=== PATIENT | male | born 1970 | race Caucasian/White ===

== ENCOUNTER 2017-08-06 20:58 | Emergency (ER) | payer MEDICAID ==
[~2017-08-06] VITALS: Ht 175.3 cm; Wt 71.5 kg
[~2017-08-06 20:58] MED LIST: DENIES MEDS
[2017-08-06 21:01] VITALS: Ht 175.3 cm; Wt 71.5 kg
[2017-08-06] MEDS ORDERED: NITROGLYCERIN 2% 1 GM OINT PKT TD STA (21:25)
[2017-08-06] MEDS ORDERED: ASPIRIN 325 MG TAB PO STA (21:25)
[2017-08-06] MEDS ORDERED: HYDROCODONE/APAP (10/325) TAB PO ONE (21:30)
[2017-08-06] MEDS ORDERED: LORAZEPAM 1 MG TAB PO ONE (21:30)
--- NOTE | 2017-08-06 21:42 | RADRPT ---
PROCEDURE: XR Chest. CLINICAL INDICATION: Chest pain. TECHNIQUE: Single frontal view. COMPARISON: None. FINDINGS: The lungs are clear. The heart size is normal. There is no pleural effusion. There is no pneumothorax. IMPRESSION: 1. Normal chest radiograph. RPTAT: QQ .Fritz Huynh MD, Date Time Electronically viewed and signed by .Fritz Huynh MD, on 08/06/2017 21:42 .R/
[2017-08-06 22:10] LABS: BASOPHILS % 0.4 % (0.0-2.0); EOSINOPHILS # 0.6 10^3/ul (0.0-0.5); EOSINOPHILS % 6.1 % (0.0-7.0); HEMATOCRIT 41.5 % (42.0-52.0); HEMOGLOBIN 14.3 g/dl (14.0-18.0); LYMPHOCYTES # 2.9 10^3/ul (0.8-2.9); MEAN CORPUSCULAR HEMOGLOBIN 30.6 pg (29.0-33.0); MEAN CORPUSCULAR HGB CONC 34.5 g/dl (32.0-37.0); MEAN CORPUSCULAR VOLUME 88.7 fl (82.0-101.0); MEAN PLATELET VOLUME 10.8 fl (7.4-10.4); MONOCYTE # 0.6 10^3/ul (0.3-0.9); MONOCYTES % 6.1 % (0.0-11.0); NEUTROPHIL # 5.3 10^3/ul (1.6-7.5); NEUTROPHILS % 56.1 % (39.0-77.0); PLATELET COUNT 235 10^3/UL (140-415); RED BLOOD COUNT 4.68 10^6/ul (4.70-6.10); RED CELL DISTRIBUTION WIDTH 12.7 % (11.5-14.5); WHITE BLOOD COUNT 9.4 10^3/ul (4.8-10.8)
--- NOTE | 2017-08-06 22:16 | ERD ---
ER Documentation Chief Complaint Chief Complaint WORSEND CP TODAY RADIATING TO LFT ARM, HX PR 2009 STILL SMOKES CIGS HPI This is a 47-year-old male with prior history of acute PR he states treated by angioplasty in 2012 who presents to the emergency room with chest pain. He states that he has been smoking more frequently. He describes chest pain that is pressure-like rate into the left arm. He states occasionally exertional. He describes approximately 5 out of 10 pain currently. He is asking for IV Dilaudid. ROS All systems reviewed and are negative except as per history of present illness. Medications Home Meds Discontinued Reported Medications [Denies Meds] No Conflict Check 02/03/11 Allergies Allergies: Coded Allergies: ibuprofen (Unverified Allergy, Unknown, 08/06/17) morphine (Unverified Allergy, Unknown, 08/06/17) PMhx/Soc Medical and Surgical Hx: pt denies Medical Hx, pt denies Surgical Hx History of Surgery: No Anesthesia Reaction: No Hx Neurological Disorder: No Hx Respiratory Disorders: No Hx Cardiac Disorders: No Hx Psychiatric Problems: No Hx Miscellaneous Medical Probl: No Hx Alcohol Use: No Hx Substance Use: No Hx Tobacco Use: Yes (HALF PACK DAILY) Smoking Status: Current every day smoker FmHx Family History: No diabetes Physical Exam Vitals Vital Signs Date Time Temp Pulse Resp B/P Pulse Ox O2 Delivery O2 Flow Rate FiO2 08/06/17 21:01 98.6 105 20 147/100 99 Physical Exam General: Well developed, well nourished, no acute distress Head: Normocephalic, atraumatic. Eyes: Pupils equally reactive, EOM intact ENT: Moist mucous membranes Neck: Supple, no lymphadenopathy Respiratory: Lungs clear bilaterally, no distress Cardiovascular: RRR, no murmurs, rubs, or gallops Abdominal: Soft, non-tender, non-distended, no peritoneal signs : Deferred MSK: No edema, no unilateral swelling, 5/5 strength Neurologic: Alert and oriented, moving all extremities, normal speech, no focal weakness, no cerebellar signs Skin: No rash Psych: Normal mood Results 24 hrs Laboratory Tests Test 08/06/17 21:28 White Blood Count Pending Red Blood Count Pending Hemoglobin Pending Hematocrit Pending Mean Corpuscular Volume Pending Mean Corpuscular Hemoglobin Pending Mean Corpuscular Hemoglobin Concent Pending Red Cell Distribution Width Pending Platelet Count Pending Mean Platelet Volume Pending Current Medications Medications (Trade) Dose Ordered Sig/Michi Route PRN Reason Start Time Stop Time Status Last Admin Dose Admin Aspirin (Aspirin) 325 mg ONCE STAT PO 08/06/17 21:25 08/06/17 21:27 DC 08/06/17 21:34 Nitroglycerin (Nitroglycerin 2% Oint) 1 inch ONCE STAT TD 08/06/17 21:25 08/06/17 21:27 DC 08/06/17 21:34 Acetaminophen/ Hydrocodone Bitart (Salters (10/325)) 1 tab ONCE ONCE PO 08/06/17 21:30 08/06/17 21:31 DC 08/06/17 21:34 Lorazepam (Ativan) 1 mg ONCE ONCE PO 08/06/17 21:30 08/06/17 21:31 DC 08/06/17 21:34 Procedures/MDM EKG, MONITORS, & DIAGNOSTIC IMAGING: EKG: I reviewed and interpreted a 12-lead EKG. Rhythm: Normal sinus rhythm Ectopy: None Intervals: No abnormalities ST segments: No elevations or depressions T waves: No contiguous inversions Repeat EKG: EKG: I reviewed and interpreted a 12-lead EKG. Rhythm: Normal sinus rhythm Ectopy: None Intervals: No abnormalities ST segments: No elevations or depressions T waves: No contiguous inversions Chest x-ray: I reviewed and interpreted a 1 view of the chest Mediastinum: No enlargement Cardiac silhouette: No cardiomegaly Airspace: Clear lung puri bilaterally without evidence of pneumothorax Bones: No evidence of fracture LAB INTERPRETATION: [] MEDICAL DECISION MAKING: The patient's history, physical exam and clinical presentation is concerning for possible cardiogenic etiology and acute coronary syndrome. The patient has multiple risk factors and a description of prior PR. However, the patient is additionally exhibiting signs and symptoms consistent with drug-seeking behavior. He immediately is asking for IV Dilaudid. I argued with the patient and stated that he did not require IV narcotics. I will provide the patient with Salters for his chronic pain. He states allergy to morphine. While the patient is having chest pain there is some concern that this is malingering and possibly drug-seeking behavior. Regardless, I will give the patient the benefit of the doubt given he is a smoking history with prior description of myocardial infarction. Our electronic medical record does not show a diagnosis of acute PR that he does not have a visit around 2012 when he states that he was diagnosed with this. Consider this was done at outside hospital. Based on the patient's clinical exam and history and risk factors, I have a much lower clinical concern for pulmonary embolism, acute aortic dissection, pneumothorax, pneumonia, cardiac tamponade HEART Score: 4 MACE Rate: Upwards of 16.6% Shared Decision Making: We had a conversation regarding risk stratification, MACE rate, and the risks, benefits, alternatives of disposition planning options. Disposition planning: Recommend inpatient hospitalization for serial enzymes ER COURSE: Aspirin, nitroglycerin provided. Salters provided, Ativan provided per patient request. I kept the patient and/or family informed of laboratory and diagnostic imaging results throughout the emergency room course. DISPOSITION PLAN: Telemetry admission for management of chest pain to rule out acute coronary syndrome, serial enzymes, risk stratification and consideration of provocative testing CONSULTATION: Accepting care team and consultations: I discussed the current laboratory data, diagnostic imaging and emergency care provided. Admitting team: Dr. Meredith Admitting team indication: Insurance directed Departure Diagnosis: Primary Impression: Chest pain Chest pain type: unspecified Qualified Code: R07.9 - Chest pain, unspecified type Additional Impression: Drug-seeking behavior Condition: Stable MARBELLA LEE MD Aug 06, 2017 22:16
[2017-08-06 22:34] LABS: ANION GAP 16 (8-16); BLOOD UREA NITROGEN 17 mg/dl (7-20); CALCIUM 9.5 mg/dl (8.4-10.2); CARBON DIOXIDE 25 mmol/L (21-31); CHLORIDE 107 mmol/L (97-110); GLUCOSE 119 mg/dl (70-220); POTASSIUM 3.8 mmol/L (3.5-5.1); SODIUM 144 mmol/L (135-144)
[2017-08-06 22:46] LABS: TROPONIN-I < 0.012 ng/ml (0.00-0.12)
[2017-08-06] MEDS ORDERED: ACETAMINOPHEN 325 MG TAB PO PRN (23:00)
[2017-08-06] MEDS ORDERED: ONDANSETRON 4 MG INJ IV PRN (23:00)
[2017-08-07] MEDS ORDERED: HYDROCODONE/APAP (5/325) TAB PO PRN
[2017-08-07] MEDS ORDERED: ONDANSETRON 4 MG INJ IV PRN
[2017-08-07] MEDS ORDERED: ACETAMINOPHEN 325 MG TAB PO PRN
[2017-08-07] MEDS ORDERED: NITROGLYCERIN (SL) 0.4 MG TAB SL PRN
[2017-08-07] MEDS ORDERED: ALBUTEROL/IPRATROPIUM (NEB) 3 ML AMP HHN PRN
[2017-08-07] MEDS ORDERED: NACL 0.9% 3 ML SYG IV SCH
[2017-08-07 05:05] VITALS: TEMP 97.9
[2017-08-07 08:45] VITALS: BP 101/78; PULSE 69; RESP 18
[2017-08-07] MEDS ORDERED: ENOXAPARIN 40 MG/0.4 ML SYG SC SCH (09:00)
[2017-08-07] MEDS ORDERED: ASPIRIN 81 MG TAB PO SCH (09:00)
--- NOTE | 2017-08-07 09:16 | EN ---
Date/Time of Note Date/Time of Note DATE: 08/07/17 TIME: 09:15 Patient now refusing admission. Extensive counseling provided. Patient understands that a potential serious etiology including but not limited to acute coronary syndrome/myocardial infarction has not been ruled out and has verbalized understanding of the consequences including but not limited to sudden and permanent disability. Despite this he is insistent on signing out AGAINST MEDICAL ADVICE. Patient understands that he is welcome and indeed encouraged to return to the ED at any time should he change his mind or experience any other symptoms. LUCERO MONTES DE OCA MD Aug 07, 2017 09:16
--- NOTE | 2017-08-07 10:26 | HP ---
Date/Time of Note Date/Time of Note DATE: 08/07/17 TIME: 10:22 Assessment/Plan Lines/Catheters IV Catheter Type (from Nrs): Saline Lock Assessment/Plan Assessment/Plan ASSESSMENT 47-year-old male was reported history of CAD with stent in 2012 here was chest pain, need to rule out ACS. First troponin negative and the EKG was no ST-T wave abnormalities. PLAN Admit to telemetry unit Supplemental oxygen, aspirin, statin with as needed nitro morphine. Beta- niko if blood pressure allows 2D echo Cardiology consult as needed HPI/ROS Admit Date/Time Admit Date/Time Hx of Present Illness This is a 47-year-old male with reported history of CAD with stent in 2012, smoking history who presented to the ER complaining of chest pain. He said he has been having chest pain off and on but worsens for the past day or two. Pain is slightly left-sided, pressure-like with radiation to his left arm. Reported occasional shortness of breath. Denied nausea/vomiting or diaphoresis. In ER, first troponin negative and EKG was no ST-T wave abnormalities. Patient reported morphine allergy and has been asking for Dilaudid while in the ER. PMH/Family/Social Social History Smoking Status: Current every day smoker Exam/Review of Systems Vital Signs Vitals Vital Signs Date Time Temp Pulse Resp B/P Pulse Ox O2 Delivery O2 Flow Rate FiO2 08/07/17 05:05 97.9 72 18 104/69 97 Room Air 08/06/17 23:15 2 Labs Result Diagram: 08/06/17212708/06/172127 Medications Medications Current Medications Ondansetron HCl (Zofran Inj) 4 mg Q6H PRN IV NAUSEA AND/OR VOMITING; Start 08/07/17 at 00:00 Aspirin (Aspirin) 81 mg DAILY PO ; Start 08/07/17 at 09:00 Nitroglycerin (Nitroglycerin (Sl Tab) 0.4 Mg) 1 tab Q5M PRN SL CHEST PAIN; Start 08/07/17 at 00:00 Acetaminophen (Tylenol Tab) 650 mg Q6H PRN PO PAIN LEVEL 1-3 OR FEVER; Start 08/07/17 at 00:00 Enoxaparin Sodium (Lovenox) 40 mg DAILY SC ; Start 08/07/17 at 09:00 Atorvastatin Calcium (Lipitor) 40 mg QHS PO ; Start 08/07/17 at 21:00 Acetaminophen/ Hydrocodone Bitart ([place] (5/)) 1 tab Q4H PRN PO pain Last administered on 08/07/17 04:04; Admin Dose 1 TAB; Start 08/07/17 at 00:00 NEGRITA REA MD Aug 07, 2017 10:26
[2017-08-07] MEDS ORDERED: ATORVASTATIN 40 MG TAB PO SCH (21:00)
== END 2017-08-07 09:35 | disposition left against medical advice (07) ==
LOC: E/R 20:58
DX: R07.9 Chest pain, unspecified (principal); F17.210 Nicotine dependence, cigarettes, uncomplicated; Z76.5 Malingerer [conscious simulation]
CPT/HCPCS: 36415; 71010; 80048; 84484; 85025; 93005; 96374; J2405; Z7502; Z7610; J1650

== ENCOUNTER 2017-08-08 15:02 | Emergency (ER) | payer MEDICAID ==
[~2017-08-08] VITALS: Wt 70.0 kg
== END 2017-08-08 17:28 | disposition left against medical advice (07) ==
LOC: E/R 15:02
DX: Z53.21 Procedure and treatment not carried out due to patient leaving prior to being seen by health care provider (principal)

== ENCOUNTER 2017-08-08 18:12 | Emergency (ER) | payer MEDICAID ==
[~2017-08-08] VITALS: Wt 71.0 kg
[2017-08-08 20:54] LABS: BASOPHILS % 0.3 % (0.0-2.0); EOSINOPHILS # 0.4 10^3/ul (0.0-0.5); HEMATOCRIT 42.5 % (42.0-52.0); HEMOGLOBIN 14.8 g/dl (14.0-18.0); LYMPHOCYTES # 2.8 10^3/ul (0.8-2.9); LYMPHOCYTES % 32.1 % (15.0-51.0); MEAN CORPUSCULAR HEMOGLOBIN 30.5 pg (29.0-33.0); MEAN CORPUSCULAR HGB CONC 34.8 g/dl (32.0-37.0); MEAN CORPUSCULAR VOLUME 87.6 fl (82.0-101.0); MEAN PLATELET VOLUME 10.5 fl (7.4-10.4); MONOCYTE # 0.7 10^3/ul (0.3-0.9); MONOCYTES % 8.5 % (0.0-11.0); NEUTROPHIL # 4.8 10^3/ul (1.6-7.5); PLATELET COUNT 255 10^3/UL (140-415); RED BLOOD COUNT 4.85 10^6/ul (4.70-6.10); RED CELL DISTRIBUTION WIDTH 12.6 % (11.5-14.5); WHITE BLOOD COUNT 8.7 10^3/ul (4.8-10.8)
[2017-08-08] MEDS ORDERED: HYDROmorphONE 0.5 MG/0.5 ML SYG IV STA ×2 (21:14→22:02)
--- NOTE | 2017-08-08 21:17 | RADRPT ---
PROCEDURE: XR Chest. CLINICAL INDICATION: Chest pain TECHNIQUE: Single frontal view of the chest was obtained COMPARISON: 08/06/2017 FINDINGS: The heart and mediastinum are within normal limits. The lungs are clear. ECG leads projected over the chest. There is no pleural effusion or pneumothorax. IMPRESSION: No acute disease. RPTAT: HJES .Satnam Schwartz MD, MD Date Time Electronically viewed and signed by .Satnam Schwartz MD, MD on 08/08/2017 21:17 .S/
[2017-08-08 21:26] LABS: ANION GAP 14 (8-16); BLOOD UREA NITROGEN 12 mg/dl (7-20); CALCIUM 9.7 mg/dl (8.4-10.2); CARBON DIOXIDE 29 mmol/L (21-31); CHLORIDE 108 mmol/L (97-110); CREATININE 0.79 mg/dl (0.61-1.24); GLUCOSE 94 mg/dl (70-220); POTASSIUM 3.7 mmol/L (3.5-5.1); SODIUM 147 mmol/L (135-144)
[2017-08-08] MEDS ORDERED: ASPIRIN 81 MG TAB PO ONE (21:30)
[2017-08-08 21:38] LABS: TROPONIN-I < 0.012 ng/ml (0.00-0.12)
[2017-08-08] MEDS ORDERED: LORAZEPAM 2 MG INJ IV ONE (22:00)
[2017-08-08] MEDS ORDERED: HYDROmorphONE 1 MG/ML SYG IV STA (22:50)
[2017-08-08] MEDS ORDERED: ACETAMINOPHEN 325 MG TAB PO PRN (23:00)
[2017-08-08] MEDS ORDERED: ONDANSETRON 4 MG INJ IV PRN (23:00)
--- NOTE | 2017-08-08 23:23 | ERD ---
ER Documentation Chief Complaint Chief Complaint pt. signed up and left twice today. third registration w cc cp HPI 47-year-old male with a history of hypertension and CAD status post [place] in 2008 presenting to the ER with left-sided chest pain. This patient was here yesterday as well with the same complaints. He was going to be admitted, but signed out AMA from the ER. He decided to come back to the ED as this chest pain was not resolving. He complains of pressure-like left-sided chest pain, constant, radiating to his left arm and left neck. No associated shortness of breath, diaphoresis, nausea, vomiting. The patient is asking for Dilaudid only and Ativan IV, stating he is allergic to morphine. ROS All systems reviewed and are negative except as per history of present illness. Medications Home Meds Discontinued Reported Medications [Denies Meds] No Conflict Check 02/03/11 Allergies Allergies: Coded Allergies: ibuprofen (Unverified Allergy, Unknown, 08/08/17) morphine (Unverified Allergy, Unknown, 08/08/17) PMhx/Soc Medical and Surgical Hx: pt denies Surgical Hx History of Surgery: No Anesthesia Reaction: No Hx Neurological Disorder: No Hx Respiratory Disorders: No Hx Cardiac Disorders: Yes (HLD, [place] 2008) Hx Psychiatric Problems: No Hx Miscellaneous Medical Probl: Yes (HLD) Hx Alcohol Use: No Hx Substance Use: No Hx Tobacco Use: Yes (HALF PACK DAILY) Smoking Status: Current every day smoker FmHx Family History: coronary disease Physical Exam Vitals Vital Signs Date Time Temp Pulse Resp B/P Pulse Ox O2 Delivery O2 Flow Rate FiO2 08/08/17 20:35 85 18 132/99 99 Room Air 08/08/17 18:15 98.0 88 20 134/83 99 Physical Exam Const: No apparent distress, nontoxic, no diaphoresis Head: Atraumatic Eyes: Normal Conjunctiva ENT: Normal External Ears, Nose and Mouth. Neck: Full range of motion..~ No meningismus. No JVD Resp: Clear to auscultation bilaterally Cardio: Regular rate and rhythm, no murmurs. 2+ distal pulses in all 4 extremities Abd: Soft, non tender, non distended. Normal bowel sounds Skin: No petechiae or rashes Back: No midline or flank tenderness Ext: No cyanosis, or edema. no calf tenderness Neur: Awake and alert Psych: Normal Mood and Affect Result Diagram: 08/08/17202908/08/17 2030 Results 24 hrs Laboratory Tests Test 08/08/17 20:30 White Blood Count 8.710^3/ul Red Blood Count 4.8510^6/ul Hemoglobin 14.8g/dl Hematocrit 42.5% Mean Corpuscular Volume 87.6fl Mean Corpuscular Hemoglobin 30.5pg Mean Corpuscular Hemoglobin Concent 34.8g/dl Red Cell Distribution Width 12.6% Platelet Count 37316^3/UL Mean Platelet Volume 10.5fl Neutrophils % 55.0% Lymphocytes % 32.1% Monocytes % 8.5% Eosinophils % 4.0% Basophils % 0.3% Nucleated Red Blood Cells % 0.0/100WBC Neutrophils # 4.810^3/ul Lymphocytes # 2.810^3/ul Monocytes # 0.710^3/ul Eosinophils # 0.410^3/ul Basophils # 0.010^3/ul Nucleated Red Blood Cells # 0.010^3/ul Sodium Level 147mmol/L Potassium Level 3.7mmol/L Chloride Level 108mmol/L Carbon Dioxide Level 29mmol/L Anion Gap 14 Blood Urea Nitrogen 12mg/dl Creatinine 0.79mg/dl Glucose Level 94mg/dl Calcium Level 9.7mg/dl Troponin I < 0.012ng/ml Current Medications Medications (Trade) Dose Ordered Sig/Michi Route PRN Reason Start Time Stop Time Status Last Admin Dose Admin Aspirin (Aspirin) 162 mg ONCE ONCE PO 08/08/17 21:30 08/08/17 21:31 DC 08/08/17 22:00 Hydromorphone HCl (Dilaudid) 0.5 mg ONCE STAT IV 08/08/17 21:14 08/08/17 21:47 DC Lorazepam (Ativan) 1 mg ONCE ONCE IV 08/08/17 22:00 08/08/17 22:01 DC Hydromorphone HCl (Dilaudid) 0.5 mg ONCE STAT IV 08/08/17 22:02 08/08/17 22:03 DC 08/08/17 22:15 Ondansetron HCl (Zofran Inj) 4 mg ER BRIDGE PRN IV NAUSEA AND/OR VOMITING 08/08/17 23:00 08/09/17 22:59 Acetaminophen (Tylenol Tab) 650 mg ER BRIDGE PRN PO MILD PAIN/FEVER 08/08/17 23:00 08/09/17 22:59 Hydromorphone HCl (Dilaudid) 1 mg ONCE STAT IV 08/08/17 22:50 08/08/17 22:51 DC Procedures/MDM EKG: Rate/Rhythm: Normal sinus rhythm QRS, ST, T-waves: Left axis deviation, No changes consistent w/ acute ischemia Impression: No evidence of ischemia or arrhythmia Chest x-ray shows no acute abnormalities Labs reviewed by me: CBC unremarkable BMP with mild hypernatremia, otherwise unremarkable Troponin within normal limits MDM Patient's symptoms are concerning for cardiac cause will require inpatient workup and continuous monitoring. I doubt pulmonary embolism or dissection at this time. Aspirin was given. Dilaudid IV was given as well. Given the patient is high risk for chest pain due to ACS, he will be admitted for further workup. Further w/u for ischemia, arrhythmia, PE or dissection will be deferred to the inpatient team. Accepting Care Team: Current data and ongoing care discussed. Time: Time of admission Primary Provider: Masoud Outstanding Data: none Departure Diagnosis: Primary Impression: Chest pain Chest pain type: unspecified Qualified Code: R07.9 - Chest pain, unspecified type Condition: Fair GREG TINAJERO MD Aug 08, 2017 23:23
[2017-08-09] MEDS ORDERED: HYDROCODONE/APAP (5/325) TAB PO PRN ×2 (02:00→05:30)
[2017-08-09 04:14] LABS: CREATINE KINASE 87 IU/L (23-200)
[2017-08-09 04:42] LABS: CK-MB 0.37 ng/ml (0.0-2.4); TROPONIN-I < 0.012 ng/ml (0.00-0.12)
[2017-08-09] MEDS ORDERED: NACL 0.9% 3 ML SYG IV SCH (05:30)
[2017-08-09] MEDS ORDERED: ALBUTEROL/IPRATROPIUM (NEB) 3 ML AMP HHN PRN (05:30)
[2017-08-09] MEDS ORDERED: NITROGLYCERIN (SL) 0.4 MG TAB SL PRN (05:30)
[2017-08-09] MEDS ORDERED: ONDANSETRON 4 MG INJ IV PRN (05:30)
[2017-08-09] MEDS ORDERED: ACETAMINOPHEN 325 MG TAB PO PRN (05:30)
[2017-08-09 08:28] LABS: BASOPHILS % 0.4 % (0.0-2.0); EOSINOPHILS # 0.4 10^3/ul (0.0-0.5); EOSINOPHILS % 5.7 % (0.0-7.0); HEMATOCRIT 40.8 % (42.0-52.0); HEMOGLOBIN 13.9 g/dl (14.0-18.0); LYMPHOCYTES # 3.1 10^3/ul (0.8-2.9); LYMPHOCYTES % 41.6 % (15.0-51.0); MEAN CORPUSCULAR HEMOGLOBIN 30.3 pg (29.0-33.0); MEAN CORPUSCULAR HGB CONC 34.1 g/dl (32.0-37.0); MEAN CORPUSCULAR VOLUME 89.1 fl (82.0-101.0); MEAN PLATELET VOLUME 10.4 fl (7.4-10.4); MONOCYTE # 0.7 10^3/ul (0.3-0.9); NEUTROPHIL # 3.2 10^3/ul (1.6-7.5); NEUTROPHILS % 43.2 % (39.0-77.0); PLATELET COUNT 226 10^3/UL (140-415); RED BLOOD COUNT 4.58 10^6/ul (4.70-6.10); RED CELL DISTRIBUTION WIDTH 12.5 % (11.5-14.5); WHITE BLOOD COUNT 7.4 10^3/ul (4.8-10.8)
[2017-08-09 08:39] LABS: ALBUMIN 3.5 g/dl (3.3-4.9); ALBUMIN/GLOBULIN RATIO 1.2; BILIRUBIN,INDIRECT 0.2 mg/dl (0-1.1); BILIRUBIN,TOTAL 0.2 mg/dl (0.2-1.3); CALCIUM 9.1 mg/dl (8.4-10.2); CREATINE KINASE 82 IU/L (23-200); CREATININE 0.85 mg/dl (0.61-1.24); POTASSIUM 3.9 mmol/L (3.5-5.1); TOTAL PROTEIN 6.4 g/dl (6.1-8.1)
[2017-08-09 08:53] LABS: CK-MB 0.39 ng/ml (0.0-2.4); TROPONIN-I < 0.012 ng/ml (0.00-0.12)
[2017-08-09] MEDS ORDERED: METOPROLOL 25 MG TAB PO SCH (09:00)
[2017-08-09] MEDS ORDERED: ENOXAPARIN 40 MG/0.4 ML SYG SC SCH (09:00)
[2017-08-09] MEDS ORDERED: ASPIRIN (EC) 81 MG TAB PO SCH (09:00)
[2017-08-09 11:00] VITALS: BP 113/62; PULSE 65; RESP 16; TEMP 97.9
--- NOTE | 2017-08-09 15:51 | RADRPT ---
Echocardiogram Report Patient Name: MATT DERAS Gender: Male Date: 1970 Study Date: 09-Aug-2017 Digital Imaging Technician: Gerald Silva [facility] Location: [facility] Ref. Physician: NEGRITA REA Quality: Good Procedures: Transthoracic echocardiogram with complete 2D, M-Mode, and doppler examination. Indications: Chest Pain. 2D/M Mode Doppler Measurement Value Normal Ranges Measurement Value Normal Ranges LVIDd 2D 5.0 3.5 - 5.6 cm AV Peak [place] 1.4 m/sec LVIDs 2D 2.9 2.1 - 4.1 cm AV Peak PG 8.3 mmHg LVPWd 2D 1.0 0.6 - 1.1 cm LVOT Peak [place] 1.1 m/sec IVSd 2D 1.0 0.6 - 1.1 cm LVOT Peak PG 5.1 mmHg AoR Diam 2D 3.1 2.0 - 3.7 cm MV E Peak [place] 0.7 m/sec EDV 2D 117.5 cm3 MV A Peak [place] 0.7 m/sec ESV 2D 24.4 cm3 MV E/A 1.1 LA Dimen 2D 2.9 2.3 - 4.0 cm MV Decel Time 143 msec MV Decel Perry 5 MV E/A 1.1 TR Peak [place]iston 2.3 m/sec TR Peak PG 20.7 mmHg RVSP 24.0 mmHg Findings Left Ventricle: Normal left ventricular systolic function. Normal left ventricular cavity size. Normal left ventricular wall thickness. Ejection fraction is visually estimated at 6065 %. Tissue Doppler/Mitral Doppler indices are within normal limits. Right Ventricle: Normal right ventricular size. Normal right ventricular systolic function. Left Atrium: The left atrium is normal in size. Right Atrium: The right atrium is normal in size. Mitral Valve: Normal appearance and function of the mitral valve with trace physiologic regurgitation. Aortic Valve: Normal appearance of the aortic valve. No significant aortic stenosis or insufficiency. Tricuspid Valve: Normal appearance of the tricuspid valve. Estimated peak PA systolic pressure 24 mmHg. There is trace tricuspid regurgitation. Pulmonic Valve: Normal pulmonic valve appearance. Pericardium: Normal pericardium with no significant pericardial effusion. Aorta: Normal aortic root. IVC: Normal size and normal respiratory collapse consistent with normal right atrial pressure. Conclusions 1.The left ventricle is normal in size and systolic function. 2.Estimated left ventricular ejection fraction of 60-65%. Electronically Signed By: Vince Kumar 09-Aug-2017 15:50:22 -0800 Patient Name: MATT DERAS Study Date: 09-Aug-2017 [id number]
== END 2017-08-09 16:29 | disposition left against medical advice (07) ==
LOC: E/R 18:12
DX: R07.9 Chest pain, unspecified (principal); I25.10 Atherosclerotic heart disease of native coronary artery without angina pectoris; I10 Essential (primary) hypertension; F17.210 Nicotine dependence, cigarettes, uncomplicated; R40.2142 Coma scale, eyes open, spontaneous, at arrival to emergency department; R40.2252 Coma scale, best verbal response, oriented, at arrival to emergency department; R40.2362 Coma scale, best motor response, obeys commands, at arrival to emergency department
CPT/HCPCS: 36415; 71010; 80048; 80053; 82550; 82553; 84484; 85025; 93005; 93306; 96374; 96376; J1170; J2060; Z7502; Z7610

== ENCOUNTER 2017-09-29 03:11 | Emergency (ER) | END 2017-09-29 06:02 | disposition home or self-care (01) ==

== ENCOUNTER 2018-04-21 16:19 | Emergency (ER) | END 2018-04-21 17:02 | disposition left against medical advice (07) ==